=== PATIENT | female | born 1990 | race Two or more races ===

== ENCOUNTER 2019-08-11 21:42 | Emergency (ER) | payer SELFPAY ==
[~2019-08-11] VITALS: Ht 157.5 cm; Wt 74.3 kg
[2019-08-12 02:20] VITALS: BP 127/73
== END 2019-08-12 02:40 | disposition home or self-care (01) ==
LOC: EMS 21:44
DX: J11.1 Influenza due to unidentified influenza virus with other respiratory manifestations (principal); F12.90 Cannabis use, unspecified, uncomplicated